=== PATIENT | male | born 1935 | race Caucasian/White ===

== ENCOUNTER 2016-05-11 23:01 | Inpatient (IN) | payer MEDICARE, OTHER ==
[~2016-05-11] VITALS: Ht 185.4 cm; Wt 75.0 kg
[~2016-05-11 23:01] MED LIST: ATROVENT INHALE14 GM IH; BROVANA15 MCG/2 M IH; CARDIZEM CD360 MG PO; COUMADIN 1MG1 MG/TAB PO; FLOMAX 0.40.4 MG/CAP PO; LAMISIL250 MG PO; LASIX 40MG TABL40 MG PO; LOVENOX 8080 MG/0.8 SQ; MULTAQ400 MG PO; PRILOSEC 20MG20 MG PO; PULMICORT0.25 MG/2 IH; RT SPIRIVA18 MCG IH; TIAZAC360 MG
[2016-05-12 01:35] VITALS: BP 122/64; PULSE 110; TEMP 98.8
[2016-05-12] MEDS ORDERED: PRAVACHOL 20MG20 MG PO (03:22)
[2016-05-12] MEDS ORDERED: PREDNISONE10 MG PO (03:28)
[2016-05-12] MEDS ORDERED: LANOXIN 0.120.125 MG PO (03:35)
[2016-05-12] MEDS ORDERED: TYLENOL 500MG500 MG PO (03:40)
[2016-05-12 04:11] VITALS: BP 127/62; PULSE 94; TEMP 98.7
[2016-05-12 07:50] LABS: MEAN CELL VOLUME 101 fl (80.0-100.0); MEAN CORPUSCULAR HGB CONC 32 g/dl (33.0-37.0); PLATELET COUNT 165 K/mm3 (130-400); RED BLOOD COUNT 3.18 M/mm3 (4.20-5.60); REDCELL DISTRIBUTION WIDTH-CV 15.8 % (11.5-14.5)
[2016-05-12 07:56] LABS: ADD PATHOLOGY DIFF REVIEW NO; HEMATOCRIT 32.2 % (42.0-52.0); HEMOGLOBIN 10.4 g/dl (13.5-18.0); MEAN CORPUSCULAR HEMOGLOBIN 33 pg (27.0-31.0); WHITE BLOOD COUNT 20.2 K/mm3 (4.8-10.8)
[2016-05-12 07:57] VITALS: BP 117/53; PULSE 103; TEMP 98.3
[2016-05-12 08:02] LABS: BAND 33 % (0-10); NEUTROPHILS 64 % (42.0-75.2); PLATELET ESTIMATE NORMAL (NORMAL); TOTAL CELLS COUNTED 100
[2016-05-12 08:19] LABS: CALCIUM 8.8 mg/dL (8.4-10.2); CREATININE, serum 0.81 mg/dL (0.66-1.25); DIGOXIN 1.2 ng/mL (0.8-2.0); POTASSIUM 4.3 mmol/L (3.4-5.0)
[2016-05-12 11:30] VITALS: BP 112/69; PULSE 100; TEMP 97.8
[2016-05-12 16:22] VITALS: BP 106/76; PULSE 107
[2016-05-12 20:30] VITALS: BP 113/53; PULSE 78; TEMP 98.4
[2016-05-13] VITALS (7 sets, daily range): BP systolic 97–123; BP diastolic 42–66; PULSE 60–90; TEMP 97.5–98.4
[2016-05-13 06:31] LABS: ADD PATHOLOGY DIFF REVIEW NO
[2016-05-13 06:40] LABS: MEAN CELL VOLUME 102 fl (80.0-100.0); MEAN CORPUSCULAR HGB CONC 32 g/dl (33.0-37.0); MEAN PLATELET VOLUME 10.2 fl (7.4-10.4); PLATELET COUNT 141 K/mm3 (130-400); RED BLOOD COUNT 2.86 M/mm3 (4.20-5.60); REDCELL DISTRIBUTION WIDTH-CV 15.6 % (11.5-14.5); WHITE BLOOD COUNT 13.6 K/mm3 (4.8-10.8)
[2016-05-13 06:41] LABS: HEMATOCRIT 29.1 % (42.0-52.0); HEMOGLOBIN 9.3 g/dl (13.5-18.0); MEAN CORPUSCULAR HEMOGLOBIN 33 pg (27.0-31.0); PROTHROMBIN TIME 36.2 SECONDS (9.7-12.8)
[2016-05-13 07:10] LABS: INR 3.2 (0.8-3.0)
[2016-05-13 07:12] LABS: ADJUSTED CALCIUM 9.8 mg/dL (8.4-10.2); ALBUMIN 2.7 gm/dL (3.5-5.0); BILIRUBIN,TOTAL 1.2 mg/dL (0.0-1.0); CALCIUM 8.8 mg/dL (8.4-10.2); CREATININE, serum 0.62 mg/dL (0.66-1.25); MAGNESIUM 2.3 mg/dL (1.6-2.3); POTASSIUM 3.9 mmol/L (3.4-5.0); TOTAL PROTEIN 5.8 gm/dL (6.4-8.2)
[2016-05-13 07:16] LABS: BAND 19 % (0-10); NEUTROPHILS 80 % (42.0-75.2); PLATELET ESTIMATE NORMAL (NORMAL); TOTAL CELLS COUNTED 100
[2016-05-14 07:05] LABS: MEAN CELL VOLUME 100 fl (80.0-100.0); MEAN CORPUSCULAR HGB CONC 32 g/dl (33.0-37.0); MEAN PLATELET VOLUME 10.3 fl (7.4-10.4); PLATELET COUNT 152 K/mm3 (130-400); RED BLOOD COUNT 2.92 M/mm3 (4.20-5.60); REDCELL DISTRIBUTION WIDTH-CV 15.8 % (11.5-14.5); WHITE BLOOD COUNT 10.3 K/mm3 (4.8-10.8)
[2016-05-14 07:09] LABS: ADD PATHOLOGY DIFF REVIEW NO; HEMATOCRIT 29.3 % (42.0-52.0); HEMOGLOBIN 9.4 g/dl (13.5-18.0); MEAN CORPUSCULAR HEMOGLOBIN 32 pg (27.0-31.0)
[2016-05-14 07:25] LABS: PROTHROMBIN TIME 41.7 SECONDS (9.7-12.8)
[2016-05-14 07:27] LABS: INR 3.6 (0.8-3.0)
[2016-05-14 07:44] VITALS: BP 127/62; PULSE 91; TEMP 97.9
[2016-05-14 08:04] LABS: BAND 15 % (0-10); NEUTROPHILS 83 % (42.0-75.2); TOTAL CELLS COUNTED 100
[2016-05-14] MEDS ORDERED: LASIX 80MG TABL80 MG PO (10:51)
[2016-05-14] MEDS ORDERED: BACTRIM DS 8001 TAB PO (10:53)
[2016-05-14] MEDS ORDERED: PRILOSEC 20MG20 MG PO (10:54)
[2016-05-14] MEDS ORDERED: FISH OIL 1000MG1 CAP PO (10:56)
[2016-05-14] MEDS ORDERED: RT SPIRIVA18 MCG IH (10:57)
[2016-05-14] MEDS ORDERED: GENTLE LAXATIVE10 MG RC (11:02)
[2016-05-14] MEDS ORDERED: ATROVENT I0.2 MG/1 M IH (11:02)
[2016-05-14] MEDS ORDERED: MILK OF MA400 MG/52 (11:03)
[2016-05-14 11:56] VITALS: BP 125/62; PULSE 96; TEMP 97.7
[2016-05-14 15:02] VITALS: BP 122/57; PULSE 90; TEMP 97.4
[2016-05-14 19:50] VITALS: BP 121/54; PULSE 100; TEMP 97.8
[2016-05-15] VITALS (7 sets, daily range): BP systolic 122–147; BP diastolic 59–76; PULSE 72–92; TEMP 97.7–98.4
[2016-05-15 07:33] LABS: GRAN # 7.6 (1.4-6.5); GRAN % 89.8 % (42.2-75.2); INR 1.5 (0.8-3.0); LYMPH # 0.2 (1.2-3.4); MEAN CELL VOLUME 102 fl (80.0-100.0); MEAN CORPUSCULAR HGB CONC 32 g/dl (33.0-37.0); MONO # 0.6 (0.1-0.6); MONO % 7.4 % (1.7-9.3); PLATELET COUNT 167 K/mm3 (130-400); PROTHROMBIN TIME 16.3 SECONDS (9.7-12.8); RED BLOOD COUNT 2.98 M/mm3 (4.20-5.60); REDCELL DISTRIBUTION WIDTH-CV 15.9 % (11.5-14.5); WHITE BLOOD COUNT 8.5 K/mm3 (4.8-10.8)
[2016-05-15 07:40] LABS: HEMATOCRIT 30.3 % (42.0-52.0); HEMOGLOBIN 9.8 g/dl (13.5-18.0); MEAN CORPUSCULAR HEMOGLOBIN 33 pg (27.0-31.0)
[2016-05-15 07:44] LABS: CALCIUM 9.1 mg/dL (8.4-10.2); CREATININE, serum 0.56 mg/dL (0.66-1.25)
[2016-05-15 12:16] LABS: GLUCOSE,PLEURAL FLUID 100 mg/dL
[2016-05-15 12:24] LABS: PLEURAL FLUID - PMN 81.8 % (0-25)
[2016-05-15 12:27] LABS: PLEURAL FLUID LEFT SIDE; PLEURAL FLUID APPEARANCE CLOUDY; PLEURAL FLUID COLOR YELLOW
[2016-05-16 00:32] VITALS: BP 131/68; PULSE 88; TEMP 97.5
[2016-05-16 05:13] VITALS: BP 135/63; PULSE 70; TEMP 97.8
[2016-05-16 07:09] LABS: INR 1.3 (0.8-3.0); PROTHROMBIN TIME 14.8 SECONDS (9.7-12.8)
[2016-05-16 08:55] VITALS: BP 141/75; PULSE 79; TEMP 97.7
[2016-05-16 12:04] VITALS: BP 137/59; PULSE 64; TEMP 97.5
[2016-05-16] MEDS ORDERED: OMNICEF 300MG300 MG PO (12:20)
[2016-05-16] MEDS ORDERED: INCRUSE EL62.5 MCG/A IH (12:21)
[2016-05-16] MEDS ORDERED: NICODERM C21 MG/PATC TD (12:21)
[2016-05-16] MEDS ORDERED: IPRATROPIUM BROM3 M1 IH ×2 (12:21)
[2016-05-16] MEDS ORDERED: MUCINEX DM 30 M1 TE1 PO (12:22)
[2016-05-16] MEDS ORDERED: PREDNISONE20 MG PO (12:23)
[2016-05-16] MEDS ORDERED: CYANOCOBAL1000 MCG/M IM (12:23)
[2016-05-16] MEDS ORDERED: LASIX 40MG TABL40 MG PO (12:25)
[2016-05-16] MEDS ORDERED: CARDIZEM CD 12120 MG PO (12:27)
[2016-05-16 14:31] VITALS: BP 137/59; PULSE 64; TEMP 97.5
== END 2016-05-16 15:47 | DRG 190 ==
LOC: MEDICAL 23:01
PROVIDERS: Internal Medicine; Internal Medicine Pulmonary Disease; Nurse Practitioner Family; Physician Assistant
PROC: 0W993ZX Drainage of Right Pleural Cavity, Percutaneous Approach, Diagnostic (ICD-10-PCS; principal; 2016-05-15)
DX: J44.0 Chronic obstructive pulmonary disease with (acute) lower respiratory infection (principal); J13 Pneumonia due to Streptococcus pneumoniae; K56.7 Ileus, unspecified; J90 Pleural effusion, not elsewhere classified; E87.1 Hypo-osmolality and hyponatremia; E44.0 Moderate protein-calorie malnutrition; Z66 Do not resuscitate; I10 Essential (primary) hypertension; I48.2 Chronic atrial fibrillation; Z79.01 Long term (current) use of anticoagulants; F17.210 Nicotine dependence, cigarettes, uncomplicated; J44.1 Chronic obstructive pulmonary disease with (acute) exacerbation
CPT/HCPCS: 99223-AI; 99232-AI; 99233-AI; 99239; C1751; C9113; J0692; J1160; J1170; J1644; J1650; J1940; J1956; J2543; J2920; J3370; J3420; J7030; J7050; Q9967